=== PATIENT | male | born 1945 | race African-American/Black ===

== ENCOUNTER 2018-11-08 14:56 | Inpatient (IN) | payer MEDICARE, OTHER | END 2018-11-09 14:00 | disposition left against medical advice (07) | LOC: OVERFLOW 14:57 → ER 14:56 → WEST WING 11-09 02:40 | DX: C15.9 Malignant neoplasm of esophagus, unspecified (principal); K22.2 Esophageal obstruction; E86.0 Dehydration ==

== ENCOUNTER 2019-02-14 09:54 | Inpatient (IN) | payer MEDICARE, OTHER ==
[~2019-02-14] VITALS: Ht 185.4 cm; Wt 60.6 kg
[~2019-02-14 09:54] MED LIST: ACET-1603 PO; LATA0.0015 EACHEYE; LIDO1SOL MT
[2019-02-14 11:16] LABS: Hematocrit 48.7 % (41.0-53.0); Hemoglobin 15.4 g/dL (13.5-17.5); Mean Corpuscular Hemoglobin 31.6 pg (28.0-32.0); Mean Corpuscular Hgb Conc. 31.6 g/dL (32.0-36.0); Platelet Count (auto) 196 10^3/uL (140-450); Red Blood Cells 4.87 10^6/uL (4.5-5.90); Red Cell Distribution Width 18.3 % (11.8-14.3); White Blood Cell 3.4 10^3/uL (4.4-10.8)
[2019-02-14 11:21] LABS: Basophils % (manual) 0 (0.0-2.0); Blast Cells 0; Eosinophils % (manual) 0 (0-7); Metamyelocytes % 0; Myelocytes % 0; Promyelocytes % 0; Reactive Lymphocytes 0
[2019-02-14] MEDS ORDERED: SODIUM CHLORIDE 0.9% 1,000 ML IV ONE ×2 (11:29)
[2019-02-14 11:34] LABS: Albumin 3.7 g/dL (3.4-5.0); Anion Gap 5 (5-15); Blood Urea Nitrogen 62 mg/dL (7-18); Calcium 9.7 mg/dL (8.5-10.1); Carbon Dioxide 29 mmol/L (21-32); Chloride 129 mmol/L (98-107); Glucose 108 mg/dL (74-106); Potassium 4.7 mmol/L (3.5-5.1)
[2019-02-14 11:40] LABS: Alanine Aminotransferase 111 U/L (16-61); Alkaline Phosphatase 152 U/L (45-117); Aspartate Aminotransferase 40 U/L (15-37); BUN/Creatinine Ratio 38.3; Bilirubin, Total 0.4 mg/dL (0.2-1.0); GFR African American 54 mL/min; GFR Non-African American 45 mL/min; Total Protein 8.6 g/dL (6.4-8.2)
[2019-02-14 11:49] LABS: Sodium 163 mmol/L (136-145)
[2019-02-14 12:05] LABS: Band Neutrophils % (manual) 2; Lymphocytes % (manual) 8 (10.0-50.0); Monocytes % (manual) 14 (0-12)
[2019-02-14 13:22] LABS: Lactic Acid w/Reflex 2.1 mmol/L (0.4-2.0)
[2019-02-14] MEDS ORDERED: DEXTROSE (50%) 50ML SYRG IV PRN (13:45)
[2019-02-14] MEDS ORDERED: D5W/SOD CHL 0.2% 1,000 ML IV SCH (13:45)
[2019-02-14] MEDS ORDERED: MORPHINE SULF INJ 2 MG/ML SYRINGE 1ML IV PRN ×3 (13:45)
[2019-02-14] MEDS ORDERED: NITROGLYCERIN 0.4 MG SL TAB SL PRN (13:45)
[2019-02-14] MEDS ORDERED: FREE WATER GT SCH (14:00)
[2019-02-14 14:07] LABS: CRP High Sensitivity 0.46 mg/dL (< 0.3)
[2019-02-14] MEDS: FREE WATER GT SCH ×3 (16:17→22:07)
[2019-02-14] MEDS: D5W 5% 1,000 ML IV SCH (16:18)
[2019-02-14] MEDS: ACCU-CHEK COMFORT CURVE STRIP VI SCH ×2 (17:33→21:52)
[2019-02-14] MEDS: InsuLIN REG 1unit/0.01ml Soln (100units/ml) SC SCH ×2 (17:33→21:52)
[2019-02-14 17:57] VITALS: BP 108/69
[2019-02-14 18:00] VITALS: BP 108/68
--- NOTE | 2019-02-14 18:05 | NUR ---
Telemetry admit from ER TARA BLANCO admitted to Telemetry unit after SBAR received. Patient oriented to JUAREZ ANAND RN primary RN, tele unit,219 room,B bed, and unit policies regarding patient care and visiting hours. Patient now on continuous telemetry monitoring, tele box # 26 and telemetry reading on arrival to unit is sinus tach 111. patient weighed by bedscale and encouraged to call if they need something. Bed in lowest position, breaks locked, side rails up x2, call light with in reach. All questions and concerns addressed, patient verbalized understanding.
--- NOTE | 2019-02-14 18:58 | NUR ---
Per patient "my doctor told me to stop taking my home medication except my nausea medication"
--- NOTE | 2019-02-14 19:23 | NUR ---
Opening Shift Note Assumed care of patient, awake and alert x4. No S/S of distress/SOB or pain. Call light is within reach, side rails up x2, bed is in lowest position. Instructed on POC and to call for assist PRN. All questions and concerns answered, will continue to monitor for changes Q1hr and PRN.
[2019-02-14 22:00] VITALS: BP 94/64
[2019-02-15] MEDS: D5W 5% 1,000 ML IV SCH ×2 (00:30→09:00)
[2019-02-15] MEDS: FREE WATER GT SCH ×6 (02:11→22:08)
[2019-02-15 04:58] LABS: Hematocrit 42.5 % (41.0-53.0); Hemoglobin 13.6 g/dL (13.5-17.5); Mean Corpuscular Hemoglobin 31.6 pg (28.0-32.0); Mean Corpuscular Volume 98.6 fL (80.0-100.0); Platelet Count (auto) 171 10^3/uL (140-450); Red Blood Cells 4.32 10^6/uL (4.5-5.90); Red Cell Distribution Width 17.8 % (11.8-14.3); White Blood Cell 3.2 10^3/uL (4.4-10.8)
[2019-02-15 05:00] VITALS: BP 99/57
[2019-02-15 05:04] LABS: Band Neutrophils % (manual) 0; Basophils % (manual) 0 (0.0-2.0); Blast Cells 0; Myelocytes % 0; Promyelocytes % 0; Reactive Lymphocytes 0
[2019-02-15 05:18] LABS: Albumin 3.2 g/dL (3.4-5.0); BUN/Creatinine Ratio 41.3; Calcium 8.3 mg/dL (8.5-10.1); Potassium 3.9 mmol/L (3.5-5.1)
[2019-02-15 05:21] LABS: Bilirubin, Total 0.6 mg/dL (0.2-1.0)
[2019-02-15] MEDS: InsuLIN REG 1unit/0.01ml Soln (100units/ml) SC SCH (06:24)
[2019-02-15] MEDS: ACCU-CHEK COMFORT CURVE STRIP VI SCH (06:25)
[2019-02-15 06:47] LABS: Eosinophils % (manual) 2 (0-7); Lymphocytes % (manual) 12 (10.0-50.0); Metamyelocytes % 1; Monocytes % (manual) 20 (0-12)
--- NOTE | 2019-02-15 07:55 | NUR ---
Morning Note Assumed care of patient, awake and alert. Respiration are even and unlabored. No S/S of distress/SOB. Bed in lowest position, breaks locked, side rails up x2, call light with in reach. Instructed on POC and to call for assist PRN, will continue to monitor for changes Q1hr and PRN.
[2019-02-15 08:42] VITALS: BP 101/63
[2019-02-15] MEDS: FAMOTIDINE (10MG/ML) 2ML VL IV SCH (09:00)
[2019-02-15] MEDS: D5W/SOD CHL 0.45% 1,000 ML IV SCH ×2 (11:00→18:31)
[2019-02-15 11:02] LABS: Urine Bacteria NONE SEEN /hpf (None Seen); Urine Blood Negative /uL (Negative); Urine Hyaline Cast FEW /lpf (0 - 2); Urine Mucus FEW (None Seen); Urine WBC 1 /hpf (0 - 3)
--- NOTE | 2019-02-15 11:18 | NUR ---
G-tube feeding/Dietitian The Dietitian spoke with patient. Per dietitian "Ronan" patient takes pivot 1.5 at home 360ml bolus 5x a day in G-tube. Dietitian recommends Pivot bolus 360ml 5x a day. Will inform doctor Faith of recommendation.
--- NOTE | 2019-02-15 11:20 | NUR ---
Dietary recommendation given to Doctor Faith. Per Faith coello to give patient g-tube feeding of Dietary recommendation.
--- NOTE | 2019-02-15 12:30 | NUR ---
PT REPORTS THAT HE IS DOING FINE AND DOES NOT NEED P.T.
[2019-02-15 13:02] VITALS: BP 103/63
[2019-02-15] MEDS ORDERED: Ensure HIGH Protein Chocolate 8oz Bottle GT SCH (14:00)
--- NOTE | 2019-02-15 14:41 | NUR ---
Nutrition consult/assessment Notes please see attached link for complete assessment Est. Needs IBW 83 [id number] kcal (25-30 kcal/kgBW), 83-91 gms pro (1.0-1.1 gms/kgBW). Will continue to monitor pertinent labs and reassess nutrient need prn Rec: Pivot 1.5 360 ml 5 times per day per MD approval Addendum: 02/15/19 at [address] Amended: Links added.
[2019-02-15] MEDS: Pivot 1.5 Cal One Liter GT SCH (14:42)
[2019-02-15 16:40] VITALS: BP 105/52
--- NOTE | 2019-02-15 18:00 | NUR ---
360 ml bolus feeding given. See EMAR for dosage instructions.
--- NOTE | 2019-02-15 19:10 | NUR ---
Patient is awake, alert and resting in bed. Respiration are even and unlabored. No S/S of distress noted. Care endorsed to NOC TREVOR Queen
--- NOTE | 2019-02-15 19:13 | NUR ---
Opening Shift Note Assumed care of patient, awake and alert x4. No S/S of distress/SOB or pain. Call light is within reach, side rails up x2, bed is in lowest position. Instructed on POC and to call for assist PRN, will continue to monitor for changes Q1hr and PRN.
[2019-02-15 20:00] VITALS: BP 137/76
--- NOTE | 2019-02-15 21:00 | NUR ---
IV removal from RFA due to infiltration IV DC'd with clean sterile technique, catheter fully intact. Pressure dressing applied to site. Patient tolerated well.
--- NOTE | 2019-02-15 21:10 | NUR ---
IV insertion IV access obtained, via clean sterile technique by inserting 22 gauge catheter at the LFA after 3 attempt(s). IV secured properly. No trauma to site. Patient tolerated well.
[2019-02-15 21:36] VITALS: BP 94/56
[2019-02-16] MEDS: D5W/SOD CHL 0.45% 1,000 ML IV SCH ×3 (01:15→17:15)
[2019-02-16] MEDS: FREE WATER GT SCH ×6 (02:16→22:00)
--- NOTE | 2019-02-16 02:20 | NUR ---
Patient's quality assurance monitor chassis was discontinued per doctor's order.
[2019-02-16 04:42] VITALS: BP 102/61
[2019-02-16 05:34] LABS: Hematocrit 39.6 % (41.0-53.0); Hemoglobin 12.9 g/dL (13.5-17.5); Mean Corpuscular Hgb Conc. 32.5 g/dL (32.0-36.0); Mean Corpuscular Volume 98.2 fL (80.0-100.0); Platelet Count (auto) 151 10^3/uL (140-450); Red Blood Cells 4.04 10^6/uL (4.5-5.90); Red Cell Distribution Width 17.2 % (11.8-14.3)
[2019-02-16 05:40] LABS: Basophils % (manual) 0 (0.0-2.0); Blast Cells 0; Eosinophils % (manual) 0 (0-7); Metamyelocytes % 0; Myelocytes % 0; Promyelocytes % 0; Reactive Lymphocytes 0
[2019-02-16 06:10] LABS: Potassium 3.8 mmol/L (3.5-5.1)
[2019-02-16 06:16] LABS: Albumin 2.9 g/dL (3.4-5.0); BUN/Creatinine Ratio 38.5; Calcium 8.2 mg/dL (8.5-10.1)
[2019-02-16 06:19] LABS: Bilirubin, Total 0.4 mg/dL (0.2-1.0); Total Protein 6.9 g/dL (6.4-8.2)
[2019-02-16 06:20] LABS: Band Neutrophils % (manual) 1; Lymphocytes % (manual) 28 (10.0-50.0); Monocytes % (manual) 8 (0-12)
[2019-02-16 08:00] VITALS: BP 137/76
[2019-02-16 09:00] VITALS: BP 113/67
[2019-02-16] MEDS: FAMOTIDINE (10MG/ML) 2ML VL IV SCH (10:43)
[2019-02-16 13:00] VITALS: BP 109/62
[2019-02-16] MEDS: Pivot 1.5 Cal One Liter GT SCH (16:03)
[2019-02-16 17:00] VITALS: BP 105/68
--- NOTE | 2019-02-16 19:00 | NUR ---
Opening Shift Note Assumed care of patient, awake and alert. No S/S of distress/SOB or pain. Instructed on POC and to call for assist PRN, will continue to monitor for changes Q1hr and PRN.
[2019-02-16 21:25] VITALS: BP 116/56
[2019-02-17] MEDS: FREE WATER GT SCH ×3 (02:00→10:07)
[2019-02-17] MEDS: D5W/SOD CHL 0.45% 1,000 ML IV SCH ×2 (02:30→10:30)
[2019-02-17 04:52] VITALS: BP 98/61
[2019-02-17 06:08] LABS: BUN/Creatinine Ratio 32.7; Calcium 8.1 mg/dL (8.5-10.1)
[2019-02-17 07:55] VITALS: BP 137/76
[2019-02-17 09:00] VITALS: BP 93/64
[2019-02-17] MEDS ORDERED: NEOMYCIN-BACITRACIN-POLYM UNITDOSE PKG TOP OINT TOP SCH (10:00)
[2019-02-17] MEDS: FAMOTIDINE (10MG/ML) 2ML VL IV SCH (10:52)
--- NOTE | 2019-02-17 12:50 | NUR ---
Discharge instructions given as ordered. Encourage to follow up with PMD as instructed. All questions and concerns addressed. Patient verbalized understanding. Medication reconciliation form completed and copy given to patient. IV removed with catheter intact, pressure dressing applied . Patient taken to vehicle via wheelchair with all personal belongings, accompanied by staff and family member. No distress noted at time of departure.
== END 2019-02-17 12:50 | disposition home or self-care (01) | DRG 314 ==
LOC: ER 09:54 → EDBD 09:54 → TELE 09:55 → TELE-CENTR 17:51
PROVIDERS: ADMIT Internal Medicine; ATTEND Internal Medicine
DX: I95.9 Hypotension, unspecified (principal); N17.0 Acute kidney failure with tubular necrosis; E87.0 Hyperosmolality and hypernatremia; R62.7 Adult failure to thrive; E86.0 Dehydration; I73.9 Peripheral vascular disease, unspecified; K76.89 Other specified diseases of liver; Z93.1 Gastrostomy status; Z88.8 Allergy status to other drugs, medicaments and biological substances; J43.9 Emphysema, unspecified; K44.9 Diaphragmatic hernia without obstruction or gangrene; L60.0 Ingrowing nail; N40.0 Benign prostatic hyperplasia without lower urinary tract symptoms; Z80.3 Family history of malignant neoplasm of breast; Z80.8 Family history of malignant neoplasm of other organs or systems; Z82.3 Family history of stroke; Z85.819 Personal history of malignant neoplasm of unspecified site of lip, oral cavity, and pharynx; Z86.73 Personal history of transient ischemic attack (TIA), and cerebral infarction without residual deficits; Z92.21 Personal history of antineoplastic chemotherapy; Z92.3 Personal history of irradiation
CPT/HCPCS: 36415; 71045; 74176; 80048; 80053; 81001; 82150; 82550; 82962; 83605; 83690; 84484; 85007; 85027; 85652; 86141; 87040; 87086; 93005; 99291; G0378; J3490

== ENCOUNTER → 2019-06-02 | Emergency (ER) | payer MEDICARE, OTHER ==
[~2019-06-02] VITALS: Ht 185.4 cm; Wt 64.9 kg
[~2019-06-02] MED LIST changes: -ACET-1603 PO; -LATA0.0015 EACHEYE; +LATA0.0019 EACHEYE; +ONDANSETRON HCL 4 MG/2 ML VIAL IV ONE; +PANTOPRAZOLE 40 MG TAB PO ONE; +PANTOPRAZOLE 40 MG/10 ML VIAL INJ IV ONE; +PANTOPRAZOLE 40mg/50ML NS AE 50 ML IV ONE; +PROMETHAZINE HCL 25 MG/ML 1ML IV ONE; +SODIUM CHLORIDE 0.9% 1,000 ML IV ONE
[2019-06-02 08:34] LABS: Urine Bacteria NONE SEEN /hpf (None Seen); Urine Blood Negative /uL (Negative); Urine Hyaline Cast FEW /lpf (0 - 2); Urine Specific Gravity 1.024 (1.001-1.035); Urine WBC <1 /hpf (0 - 3)
[2019-06-02 11:14] LABS: Basophils # (auto) 0 uL; Basophils % (auto) 0.4 % (0.0-2.0); Eosinophils # (auto) 0 uL; Hematocrit 40.6 % (41.0-53.0); Hemoglobin 13.3 g/dL (13.5-17.5); Lymphocytes # (auto) 0.5 uL; Lymphocytes % (auto) 5.4 % (10.0-50.0); Mean Corpuscular Hgb Conc. 32.9 g/dL (32.0-36.0); Mean Corpuscular Volume 97.2 fL (80.0-100.0); Monocytes # (auto) 0.5 uL; Monocytes % (auto) 5.7 % (0.0-12.0); Neutrophils # (auto) 8.1 uL; Neutrophils % (auto) 88.5 % (37.0-80.0); Platelet Count (auto) 298 10^3/uL (140-450); Red Blood Cells 4.17 10^6/uL (4.5-5.90); Red Cell Distribution Width 13.4 % (11.8-14.3); White Blood Cell 9.2 10^3/uL (4.4-10.8)
[2019-06-02 12:59] LABS: Basophils # (auto) 0 uL; Basophils % (auto) 0.3 % (0.0-2.0); Eosinophils # (auto) 0 uL; Hematocrit 38.9 % (41.0-53.0); Hemoglobin 12.8 g/dL (13.5-17.5); Lymphocytes # (auto) 0.4 uL; Lymphocytes % (auto) 3.5 % (10.0-50.0); Mean Corpuscular Volume 96.7 fL (80.0-100.0); Monocytes # (auto) 0.5 uL; Monocytes % (auto) 4.1 % (0.0-12.0); Neutrophils # (auto) 11.5 uL; Neutrophils % (auto) 92.1 % (37.0-80.0); Platelet Count (auto) 285 10^3/uL (140-450); Red Blood Cells 4.02 10^6/uL (4.5-5.90); Red Cell Distribution Width 13.3 % (11.8-14.3); White Blood Cell 12.5 10^3/uL (4.4-10.8)
[2019-06-02 13:03] LABS: Albumin 4.4 g/dL (3.4-5.0); Calcium 10.5 mg/dL (8.5-10.1); Potassium 4.7 mmol/L (3.5-5.1)
[2019-06-02 13:07] LABS: Bilirubin, Total 0.3 mg/dL (0.2-1.0); Total Protein 9.1 g/dL (6.4-8.2)
[2019-06-02 19:10] LABS: INR 1.12 (0.9-1.15)
[2019-06-02 21:53] VITALS: BP 140/75
== END | disposition short-term general hospital (02) ==
LOC: ER 07:09
DX: C14.0 Malignant neoplasm of pharynx, unspecified (principal); K92.0 Hematemesis; Z93.1 Gastrostomy status
CPT/HCPCS: 36415; 70490; 71045; 80053; 81001; 85025; 85610; 85730; 96361; 96365; 96366; 96375; 96376; 99285; C9113; J2405; J2550; J7030

== ENCOUNTER 2019-07-15 01:05 | Inpatient (IN) | payer MEDICARE, OTHER ==
[~2019-07-15] VITALS: Ht 185.4 cm; Wt 99.3 kg
[~2019-07-15 01:05] MED LIST changes: -ONDANSETRON HCL 4 MG/2 ML VIAL IV ONE; -PANTOPRAZOLE 40 MG TAB PO ONE; -PANTOPRAZOLE 40 MG/10 ML VIAL INJ IV ONE; -PANTOPRAZOLE 40mg/50ML NS AE 50 ML IV ONE; -PROMETHAZINE HCL 25 MG/ML 1ML IV ONE; -SODIUM CHLORIDE 0.9% 1,000 ML IV ONE
[2019-07-15 01:48] LABS: Basophils # (auto) 0 10 ^3/uL (0-0.2); Basophils % (auto) 0.2 % (0.0-2.0); Eosinophils # (auto) 0 10 ^3/uL (0-0.8); Hematocrit 46.7 % (41.0-53.0); Hemoglobin 14.8 g/dL (13.5-17.5); Lymphocytes # (auto) 0.5 10 ^3/uL (0.4-5.4); Mean Corpuscular Hgb Conc. 31.8 g/dL (32.0-36.0); Mean Corpuscular Volume 97.5 fL (80.0-100.0); Monocytes # (auto) 1.2 10 ^3/uL (0-1.3); Monocytes % (auto) 10.2 % (0.0-12.0); Neutrophils # (auto) 10.2 10 ^3/uL (1.6-8.6); Neutrophils % (auto) 85.6 % (37.0-80.0); Nucleated Red Blood Cells % 0.1 %; Platelet Count (auto) 337 10^3/uL (140-450); Red Blood Cells 4.79 10^6/uL (4.5-5.90); Red Cell Distribution Width 14.1 % (11.8-14.3); White Blood Cell 11.9 10^3/uL (4.4-10.8)
[2019-07-15 02:06] LABS: Alanine Aminotransferase 369 U/L (16-61); Anion Gap 9 (5-15); Aspartate Aminotransferase 111 U/L (15-37); BUN/Creatinine Ratio 39.7; Calcium 9.8 mg/dL (8.5-10.1); Carbon Dioxide 28 mmol/L (21-32); Chloride 116 mmol/L (98-107); GFR African American 28 mL/min; GFR Non-African American 23 mL/min; Glucose 124 mg/dL (74-106); Potassium 4.5 mmol/L (3.5-5.1); Sodium 153 mmol/L (136-145)
[2019-07-15 02:08] LABS: Blood Urea Nitrogen 116 mg/dL (7-18)
[2019-07-15 02:13] LABS: Alkaline Phosphatase 153 U/L (45-117); Bilirubin, Total 0.2 mg/dL (0.2-1.0); Total Protein 8.7 g/dL (6.4-8.2)
[2019-07-15] MEDS ORDERED: SODIUM CHLORIDE 0.9% 1,000 ML IV ONE (02:15)
[2019-07-15 03:07] LABS: Lactic Acid w/Reflex 3.3 mmol/L (0.4-2.0)
[2019-07-15] MEDS ORDERED: SODIUM CHLORIDE 0.9% 1,000 ML IV SCH (05:45)
[2019-07-15] MEDS ORDERED: ALBUTEROL SULF 2.5 MG/0.5ML(0.5%) NEB SOLN NEB PRN (05:45)
[2019-07-15] MEDS ORDERED: ALUM & MAG HYDROX-SIMETH LIQ(MAALOX) 30 ML PO PRN (05:45)
[2019-07-15] MEDS ORDERED: DOCUSATE SOD 100 MG CAP PO PRN (05:45)
[2019-07-15] MEDS ORDERED: DEXTROSE (50%) 50ML SYRG IV PRN (05:45)
[2019-07-15] MEDS ORDERED: ACETAMINOPHEN 325 MG TAB PO PRN (05:45)
[2019-07-15] MEDS ORDERED: IPRATROPIUM BROM 0.5 MG/2.5ML INH SOL NEB PRN (05:45)
[2019-07-15 06:30] LABS: Basophils # (auto) 0 10 ^3/uL (0-0.2); Basophils % (auto) 0.1 % (0.0-2.0); Eosinophils # (auto) 0 10 ^3/uL (0-0.8); Hematocrit 41.8 % (41.0-53.0); Hemoglobin 13.5 g/dL (13.5-17.5); Lymphocytes # (auto) 0.4 10 ^3/uL (0.4-5.4); Lymphocytes % (auto) 3.3 % (10.0-50.0); Mean Corpuscular Hemoglobin 31.8 pg (28.0-32.0); Mean Corpuscular Hgb Conc. 32.4 g/dL (32.0-36.0); Monocytes # (auto) 1.3 10 ^3/uL (0-1.3); Monocytes % (auto) 10.9 % (0.0-12.0); Neutrophils # (auto) 10.6 10 ^3/uL (1.6-8.6); Neutrophils % (auto) 85.7 % (37.0-80.0); Nucleated Red Blood Cells % 0.1 %; Platelet Count (auto) 273 10^3/uL (140-450); Red Blood Cells 4.27 10^6/uL (4.5-5.90); Red Cell Distribution Width 13.8 % (11.8-14.3); White Blood Cell 12.4 10^3/uL (4.4-10.8)
[2019-07-15 06:52] LABS: Anion Gap 6 (5-15); BUN/Creatinine Ratio 45.3; Calcium 8.9 mg/dL (8.5-10.1); Carbon Dioxide 25 mmol/L (21-32); Chloride 122 mmol/L (98-107); GFR African American 36 mL/min; GFR Non-African American 29 mL/min; Glucose 114 mg/dL (74-106); Potassium 4.7 mmol/L (3.5-5.1); Sodium 153 mmol/L (136-145)
[2019-07-15 06:57] LABS: Blood Urea Nitrogen 106 mg/dL (7-18)
[2019-07-15] MEDS ORDERED: ACCU-CHEK COMFORT CURVE STRIP VI SCH (08:00)
[2019-07-15] MEDS ORDERED: InsuLIN REG 1unit/0.01ml Soln (100units/ml) SC SCH (08:00)
[2019-07-15 08:44] VITALS: BP 113/71
[2019-07-15 09:00] VITALS: BP 113/71
--- NOTE | 2019-07-15 09:22 | NUR ---
PT ADMITTED TO FLOOR FROM [facility] VIA STAFF. PT HAS PG TUBE HE REPORTS SINCE LAST YEAR AND IS UNABLE TO EAT BY MOUTH. PT REPORTS HE MIGHT FALL WALKING TO BATHROOM, BEDSIDE COMMODE BROUGHT. PT INSTRUCTED TO USE CALL LIGHT PRN. BED IN LOWEST LOCKED POSITION, SIDE RAILS UP X2. VITALS: 135/85, 02 98% ON RA, HR 105, RR 18, T 98.1. WILL CONTINUE TO MONITOR.
[2019-07-15] MEDS ORDERED: Jevity 1.2 Cal/Fiber 1 Liter GT SCH (11:15)
[2019-07-15] MEDS ORDERED: PANTOPRAZOLE 40 MG/10 ML VIAL INJ IV ONE (11:15)
--- NOTE | 2019-07-15 11:49 | NUR ---
NUTRITION CONSULT/ASSESSMENT NOTES When initiating EN support, consider Glucerna 1.2 Sathish @60ml/hr goal rate, as tolerated, to meet energy and protein needs. Please refer to link notes of nutrition screen form filed under the intervention section of the plan of care for further details. Est. Energy Needs: [id number] kcal (30-35 kcal/kg BW). Est. Protein Needs: 60-84 gms/day (1.0-1.5 gms/kg BW). Will continue to monitor pertinent labs and reassess nutrient need prn Addendum: 07/15/19 at [address] Amended: Links added.
--- NOTE | 2019-07-15 12:09 | NUR ---
Dr Bo saw patient and changed fluids to 0.45 ns. New orders for Cowart catheter. Cowart catheter inserted on two attempts. 18 Belarusian, inserted approx 50 mls urine return, clear yellow. 10 mls inserted into balloon. Addendum: 07/15/19 at 1217 by JAROCHO CARLOS RN Charge slime assisted. Pt tolerated procedure well.
--- NOTE | 2019-07-15 12:17 | NUR ---
SPOKE WITH DR GARCIA EARLIER, NOTIFIED PT HAS CRITICAL BUN OF 106, MD AWARE, NEW ORDERS PLACED.
--- NOTE | 2019-07-15 12:17 | NUR ---
MRSA AND URINE SENT TO LAB PER MD ORDER.
--- NOTE | 2019-07-15 12:20 | NUR ---
PEG TUBE FLUSHED WITH 30 MLS NS. CALLED WEIGHT CONTROL ENGINEER FOR JEVITY PUMP, JEVITY SENT UP BY DIETARY WILL INITIATE FEEDING WHEN PT RETURNS FROM CT.
[2019-07-15 12:43] LABS: Urine Bacteria NONE SEEN /hpf (None Seen); Urine Blood 2+ /uL (Negative); Urine Hyaline Cast FEW /lpf (0 - 2); Urine Specific Gravity 1.026 (1.001-1.035); Urine WBC 3 /hpf (0 - 3)
[2019-07-15 12:45] LABS: Protein, Urine 24.4 mg/dL (0.0-11.9)
[2019-07-15 13:00] VITALS: BP 136/85
--- NOTE | 2019-07-15 13:00 | NUR ---
DR CAMACHO SAW PATIENT AND DISCUSSED POC, NEW ORDERS FOR HEPATITIS PANEL AND LIVER ULTRASOUND. PEG FEEDING INITIATED WITH JEVITY RUNNING AT 30 ML/HR. PT SITTING UP, PEG TUBE UNCLAMPED, WILL ASPIRATE RESIDUAL IN 2 HRS TO ENSURE PT IS TOLERATING FEEDING.
[2019-07-15] MEDS: SOD CHL 0.45% 1,000 ML IV SCH ×2 (13:59→18:00)
--- NOTE | 2019-07-15 14:38 | NUR ---
ASPIRATED PT PEG TUBE FOR RESIDUAL FEEDING, UNABLE TO OBTAIN MORE THAN 2 MLS RESIDUAL, PT TOLERATING FEEDING. PT FEEDING PUT ON HOLD PER CT REQUEST. PEG TUBE FLUSHED WITH 30 MLS STERILE WATER. WILL CONTINUE TO MONITOR.
[2019-07-15 16:44] VITALS: BP 96/64
[2019-07-15 18:22] VITALS: BP 108/69
--- NOTE | 2019-07-15 19:30 | NUR ---
Opening Shift Note Assumed care of patient, awake and alert. No S/S of distress/SOB or pain. Safety measures in place bed in lowest position, side rails x2 up, and call light within reach. Instructed on POC and to call for assist PRN, will continue to monitor for changes Q1hr and PRN. Addendum: 07/16/19 at 0031 by OPAL ZHENG RN RN Peg placement verified. No residual. Feeding has been on hold for Ultrasound.
--- NOTE | 2019-07-15 21:57 | NUR ---
Patient's daughter called. Password verified. Daughter wanted on update on her father's status. Informed her that the physician's currently are rehydrating the patient, and waiting for pending results of the ultrasound. Family verbalized understanding. All questions answered. Will continue to monitor.
[2019-07-15 22:00] VITALS: BP 104/58
--- NOTE | 2019-07-15 22:00 | NUR ---
Patient's peg tube feeding resumed.
[2019-07-16] VITALS (7 sets, daily range): BP systolic 95–127; BP diastolic 53–80
--- NOTE | 2019-07-16 01:04 | NUR ---
Checked patient's peg tube for residual 5 mL noted. Patient tolerating feeding well. Will continue to monitor.
[2019-07-16] MEDS: SOD CHL 0.45% 1,000 ML IV SCH ×4 (04:29→22:05)
--- NOTE | 2019-07-16 04:30 | NUR ---
Checked patient's peg tube for residual 0 mL noted. Patient tolerating feeding well. Will continue to administer.
[2019-07-16 06:13] LABS: Basophils # (auto) 0 10 ^3/uL (0-0.2); Basophils % (auto) 0.4 % (0.0-2.0); Eosinophils # (auto) 0 10 ^3/uL (0-0.8); Eosinophils % (auto) 0.1 % (0.0-7.0); Hemoglobin 11.4 g/dL (13.5-17.5); Lymphocytes # (auto) 0.4 10 ^3/uL (0.4-5.4); Lymphocytes % (auto) 4.6 % (10.0-50.0); Mean Corpuscular Hemoglobin 31.7 pg (28.0-32.0); Mean Corpuscular Hgb Conc. 32.6 g/dL (32.0-36.0); Mean Corpuscular Volume 97.2 fL (80.0-100.0); Monocytes # (auto) 1.3 10 ^3/uL (0-1.3); Monocytes % (auto) 13.9 % (0.0-12.0); Neutrophils # (auto) 7.8 10 ^3/uL (1.6-8.6); Nucleated Red Blood Cells % 0.1 %; Platelet Count (auto) 252 10^3/uL (140-450); Red Cell Distribution Width 13.7 % (11.8-14.3); White Blood Cell 9.6 10^3/uL (4.4-10.8)
[2019-07-16 06:17] LABS: INR 1.15 (0.9-1.15)
[2019-07-16 06:27] LABS: Albumin 3.1 g/dL (3.4-5.0); Calcium 8.6 mg/dL (8.5-10.1); Magnesium 3.1 mg/dL (1.6-2.6); Potassium 4.4 mmol/L (3.5-5.1)
[2019-07-16 06:34] LABS: BUN/Creatinine Ratio 44.7; Bilirubin, Total 0.2 mg/dL (0.2-1.0); Phosphorus 2.7 mg/dL (2.5-4.90); Total Protein 6.9 g/dL (6.4-8.2)
--- NOTE | 2019-07-16 07:53 | NUR ---
PT RESTING IN BED NO DISTRESS NOTED. PT IS DROWSY AND REPORTS NAUSEA AND HEADACHE. CHECKED FOR RESIDUAL FEEDING FOR PEG TUBE. UNABLE TO DRAW MORE THAN A FEW MLS. PEG TUBE FLUSHED WITH 30 MLS STERILE WATER. FEEDING RESUMED. APPROX 150 MLS CLEAR YELLOW URINE NOTED IN [place], WILL GIVE PRN MEDS, AND CONTINUE TO MONITOR.
[2019-07-16] MEDS: PANTOPRAZOLE 40 MG/10 ML VIAL INJ IV SCH (08:34)
[2019-07-16] MEDS: ONDANSETRON HCL 4 MG/2 ML VIAL IV PRN (08:35)
--- NOTE | 2019-07-16 11:43 | NUR ---
SPOKE WITH DR AHUMADA AT NURSING STATION. REPORTS HE IS GOING TO INCREASE PT FEED TO 50 MLS AN HOUR, REPORTS HE IS GOING TO GIVE PT MORE FREE WATER, AND WANTS PHYSICAL THERAPY TO GET PATIENT UP TO CHAIR.
[2019-07-16] MEDS ORDERED: Jevity 1.2 Cal/Fiber 1 Liter GT SCH (11:45)
--- NOTE | 2019-07-16 11:50 | NUR ---
ASSESSED PT FOR PRN MED NEB TX, PT ON RA WITH SPO2 100%, HR 98, RR 15, CLEAR BS. NO DISTRESS NOTED NO SOB NOTED. NO INDICATION FOR PRN MED NEB AT THIS TIME. WILL CONTINUE TO MONITOR PT.
[2019-07-16] MEDS ORDERED: FREE WATER GT SCH (12:00)
--- NOTE | 2019-07-16 12:30 | NUR ---
200 MLS FREE WATER GIVEN PER MD ORDER, JEVITY INCREASED TO 50 MLS/HR, WILL CHECK FOR RESIDUAL IN 2 HRS.
--- NOTE | 2019-07-16 14:28 | NUR ---
ASSESSED RESIDUAL FROM G TUBE, PULLED 2 MLS JEVITY FROM GASTRIC TUBING. PT TOLERATING FEEDING WELL. FLUSHED TUBE WITH 20 MLS FREE WATER, FEEDING RESUMED, WILL CONTINUE TO MONITOR.
--- NOTE | 2019-07-16 15:54 | NUR ---
PHYSICAL THERAPY SAW PATIENT AND REPORTS PT BECAME VERY SHAKY AND WAS UNABLE TO WALK. PT PLACED BACK IN BED, WILL CONTINUE TO MONITOR.
--- NOTE | 2019-07-16 16:00 | NUR ---
PHYSICAL THERAPY WORKED WITH PATIENT, PHYSICAL THERAPY REPORTS PT WAS SHAKING WHEN TRYING TO STAND AND,"HIS LEGS GAVE OUT." PT WAS PLACED BACK IN BED, PHYSICAL THERAPY REPORTS HIS BLOOD PRESSURE WAS STABLE, PT STILL ORIENTED. PHYSICAL THERAPIST ASKED IF PT HAS HX OF SEIZURES, NO HX OF SEIZURES REPORTED. SPOKE WITH PATIENT DAUGHTER, SHE REPORTS SHE THINKS HER FATHER HAD 2 SEIZURES A FEW DAYS AGO, BUT REPORTS SHE ISN'T SURE BECAUSE HE HAS NEVER BEEN DIAGNOSED WITH THEM. SHE REPORTS HE HAD 2 EPISODES OF SHAKING THE LAST FEW DAYS. CALLED PBX AND PAGED DR MARCY MD CALLED BACK. NOTIFIED MD PATIENT HAS HAD EPISODES OF SHAKING AND HIS LEGS HAVE GIVEN OUT. NEW ORDERS FOR NEURO CONSULT. Addendum: 07/16/19 at 1825 by JAROCHO CARLOS RN ASSESSED PT, PT A AND 0 X 4 AND RESTING IN BED, NO DISTRESS NOTED, FLUIDS AND JEVITY RUNNING, WILL CONTINUE TO MONITOR.
--- NOTE | 2019-07-16 16:14 | NUR ---
DR GARCIA ORDERED FREE WATER 200 MLS Q 4 HRS, NOT SCHEDULED ON eMAR, CALLED PHARMACY, PHARMACY REPORTS THE ORDER WAS DC'D AND NEW ORDER NOT SHOWING. CALLED PBX AND PAGED DR GARCIA TO CLARIFY ORDER PER PHARMACY REQUEST, AWAITING CALL BACK.
--- NOTE | 2019-07-16 18:57 | NUR ---
TELE TECHS REPORT PT HAS ELEVATED T WAVES. TELE STRIP SHOWS ST, HR 125, WITH ELEVATED T WAVES. PT POT 4.4, WNL, CALLED PBX AND PAGED DR VIDAL. DR VIDAL CALLED BACK, HE REPORTS HE WILL LOOK INTO PT CHART.
--- NOTE | 2019-07-16 19:44 | NUR ---
Dr. Bo paged regarding clarification of order for 200 ml of free water every 4 hours via patient's PEG tube. Awaiting callback at this time. Message left via exchange with Gissell Snow
--- NOTE | 2019-07-16 19:52 | NUR ---
Received callback from Dr. Spring regarding clarification of Dr. Bo's order for 200 ml of free water every 4 hours via PEG tube. Per Dr. Spring order is okay.
--- NOTE | 2019-07-16 20:25 | NUR ---
Opening Shift Note Assumed care of patient, awake and alert. No S/S of distress/SOB or pain. Patient is on room air. Respirations even and unlabored. Instructed on POC and to call for assist PRN, will continue to monitor for changes Q1hr and PRN.
--- NOTE | 2019-07-16 21:15 | NUR ---
Patient reports SOB Patient reports SOB. Pulse oximeter reading on room air is 100%. RT paged for PRN breathing treatment.
--- NOTE | 2019-07-16 21:22 | NUR ---
Respiratory therapist at bedside with patient.
--- NOTE | 2019-07-16 21:35 | NUR ---
CONCERN: PER DR. TRUJILLO, PT HAS BEEN HAVING PROGRESSIVE COUGH FOR DAYS AND WITH A TEMP OF 99. ALSO, PER PT WAS IN ANOTHER HOSPITAL RECENTLY AND BEEN EXPOSED TO FAMILIES AND INQUIRING IF PT NEEDED TO BE TESTED FOR COVID. INFORMED MD WILL NOTIFY DENTAL NURSE HANG.
--- NOTE | 2019-07-16 21:55 | NUR ---
HANG BARRIGAPRESS OPERATOR AUTOMATIC CALLED BACK AND WAS NOTIFIED ABOUT DR. TRUJILLO'S CONCERN. PER HS, NEEDS TO CALL HOSPITALIST.
--- NOTE | 2019-07-16 22:00 | NUR ---
NOTIFIED DR. TRUJILLO ABOUT TERE MAURICIO INSTRUCTION. PAGED HOSPITALIST.
[2019-07-16] MEDS: FREE WATER GT SCH (22:05)
--- NOTE | 2019-07-16 22:05 | NUR ---
0 ml aspirated from PEG tube. 200 ml of free water given through PEG tube. PEG tube patent.
--- NOTE | 2019-07-16 22:15 | NUR ---
PER DR. TRUJILLO, DR. BLACKBURN, HOSPITALIST WAS NOTIFIED ABOUT HIS CONCERN. NO NEW ORDER AT THIS TIME
[2019-07-16] MEDS ORDERED: LORazepam 2MG/ML-1ML VIAL IV PRN (22:30)
--- NOTE | 2019-07-16 22:45 | NUR ---
Sputum culture order placed per Dr. Eli due to patient coughing up moderate amount of thick, clear phlegm.
--- NOTE | 2019-07-16 22:50 | NUR ---
Seizure precautions set up. Side rails padded and suction at bedside with Kenny.
--- NOTE | 2019-07-16 22:55 | NUR ---
Temperature reassessed and is 99.0 F. Patient asymptomatic.
[2019-07-16 23:32] LABS: Folate (Folic Acid) 13.26 ng/mL (5.38-24)
--- NOTE | 2019-07-17 00:17 | NUR ---
Sputum culture sent to lab.
[2019-07-17] MEDS: FREE WATER GT SCH ×6 (01:55→22:24)
--- NOTE | 2019-07-17 01:55 | NUR ---
0 ml aspirated from PEG tube. 200 ml of free water given through PEG tube. PEG tube patent.
[2019-07-17 05:00] VITALS: BP 122/65
[2019-07-17] MEDS: HYDROcodone-ACET 5/325MG TAB PO PRN (05:00)
--- NOTE | 2019-07-17 05:32 | NUR ---
0 ml aspirated from PEG tube. 200 ml of free water given through PEG tube. PEG tube patent.
--- NOTE | 2019-07-17 05:40 | NUR ---
Cowart care done using Cowart care wipes.
[2019-07-17 06:00] VITALS: BP 100/53
[2019-07-17 06:21] LABS: Albumin 2.7 g/dL (3.4-5.0); Bilirubin, Total 0.2 mg/dL (0.2-1.0); Calcium 7.9 mg/dL (8.5-10.1); Total Protein 6.2 g/dL (6.4-8.2)
--- NOTE | 2019-07-17 07:00 | NUR ---
CLOSING NOTE No S/S of distress/SOB or pain. Patient is on room air. Respirations even and unlabored.
[2019-07-17] MEDS: SOD CHL 0.45% 1,000 ML IV SCH ×2 (07:04→16:35)
--- NOTE | 2019-07-17 07:45 | NUR ---
Opening Shift Note Assumed care of patient, awake and alert, reports feeling anxious. No S/S of distress/SOB, reports headache is improved. Instructed on POC and to call for assist PRN, will continue to monitor for changes Q1hr and PRN.
[2019-07-17] MEDS: PANTOPRAZOLE 40 MG/10 ML VIAL INJ IV SCH (10:56)
--- NOTE | 2019-07-17 11:20 | NUR ---
Respiratory note: PT ASSESSED FOR PRN. PT AWAKE, ALERT AND RESPONSIVE. PT FOUND ON RA SP02 99%, RR 18, HR 98. PT IN NO DISTRESS AT THIS TIME. NO TX INDICATED.
[2019-07-17 13:00] VITALS: BP 141/70
--- NOTE | 2019-07-17 15:26 | NUR ---
EEG- ELECTROENCEPHALOGRAM COMPLETED ON 07/17/2019
[2019-07-17 16:49] VITALS: BP 124/57
--- NOTE | 2019-07-17 18:27 | NUR ---
PT ASSESSED FOR PRN MED NEB TX. SPO2 97% ON RA, HR 101. PT DENIES ANY RESPIRATORY DISTRESS. NO TX INDICATED. WILL CONTINUE TO MONITOR.
[2019-07-17 20:10] VITALS: BP 135/66
--- NOTE | 2019-07-17 20:10 | NUR ---
Opening Shift Note Assumed care of patient, awake and alert. No S/S of distress/SOB or pain. Patient is on room air. Respirations even and unlabored. Instructed on POC and to call for assist PRN, will continue to monitor for changes Q1hr and PRN. Addendum: 07/18/19 at 0804 by Fina Matos RN Seizure precautions present.
[2019-07-17 22:00] VITALS: BP 135/66
--- NOTE | 2019-07-17 22:24 | NUR ---
0 ml aspirated from PEG tube. 200 ml of free water given through PEG tube. PEG tube patent.
--- NOTE | 2019-07-17 22:45 | NUR ---
Temperature reassessed and is 100.0 F. Patient has on one blanket and one sheet. Patient refuses to remove blanket or sheet. Ice packs placed underneath patient's armpits and temperature in the room lowered. Patient has no S/S of distress/SOB. Will continue to monitor.
[2019-07-18] VITALS (7 sets, daily range): BP systolic 113–140; BP diastolic 64–81
--- NOTE | 2019-07-18 00:05 | NUR ---
Temperature reassessed and is 99.7 F. Patient has on one blanket and one sheet. Patient refuses to remove blanket or sheet. Ice packs placed underneath patient's armpits. Patient has no S/S of distress/SOB. Will continue to monitor.
[2019-07-18] MEDS: SOD CHL 0.45% 1,000 ML IV SCH (01:02)
--- NOTE | 2019-07-18 01:15 | NUR ---
Temperature reassessed and is 99.4 F. Ice packs remain placed underneath patient's armpits. Patient has no S/S of distress/SOB. Will continue to monitor.
[2019-07-18] MEDS: FREE WATER GT SCH ×4 (02:30→17:57)
--- NOTE | 2019-07-18 02:30 | NUR ---
0 ml aspirated from PEG tube. 200 ml of free water given through PEG tube. PEG tube patent.
--- NOTE | 2019-07-18 03:00 | NUR ---
IV removal due to leakage of IV IV DC'd with clean sterile technique, catheter fully intact. Pressure dressing applied to site. Patient tolerated well.
--- NOTE | 2019-07-18 03:35 | NUR ---
IV insertion IV access obtained, via clean sterile technique by inserting 20 gauge catheter at right forearm after 1 attempt by Olinda MURRAY. IV secured properly. No trauma to site. Patient tolerated well. Addendum: 07/18/19 at 0439 by Fina Matos RN correction: right arm
[2019-07-18] MEDS: HYDROcodone-ACET 5/325MG TAB PO PRN ×2 (03:43→22:18)
--- NOTE | 2019-07-18 03:43 | NUR ---
Patient medicated with Birdseye 5/325 mg via PEG tube for 10/10 headache due to patient not having PRN pain medication available for severe pain level. Will continue to monitor patient and contact MD if pain not adequately controlled with Birdseye.
--- NOTE | 2019-07-18 04:43 | NUR ---
Patient has no complaints of pain.
--- NOTE | 2019-07-18 04:50 | NUR ---
Assumed care of patient Patient is sleeping in bed with no S/S of distress. Will continue to monitor.
--- NOTE | 2019-07-18 04:50 | NUR ---
Report given to Delta RN, endorsed care. Patient currently has no S/S of distress/SOB. Patient is on room air. Respirations even and unlabored.
--- NOTE | 2019-07-18 07:35 | NUR ---
Opening Shift Note Assumed care of patient, awake and alert x2, does not remember where or why he came in. No S/S of distress/SOB or pain. Instructed on POC and to call for assist PRN,bed alarm on, will continue to monitor for changes Q1hr and PRN.
[2019-07-18 07:56] LABS: Albumin 2.9 g/dL (3.4-5.0); Calcium 8.1 mg/dL (8.5-10.1); Potassium 3.7 mmol/L (3.5-5.1)
[2019-07-18 07:59] LABS: BUN/Creatinine Ratio 22.3
[2019-07-18 08:02] LABS: Bilirubin, Total 0.3 mg/dL (0.2-1.0); Phosphorus 2.3 mg/dL (2.5-4.90); Total Protein 6.4 g/dL (6.4-8.2)
--- NOTE | 2019-07-18 08:40 | NUR ---
Respiratory note: PT IS RESTING COMFORTABLY. SPO2 99% ON RA, HR 112, RR 18, BS CLEAR BILATERALLY. PRN MEDNEB TX NOT INDICATED AT THIS TIME. PT AWOKE WHILE LISTENING TO BS, AND STATED THAT HE HAS BEEN COUGHING UP A LOT OF SECRETIONS. PT INFORMED TO PUSH CALL BUTTON IF INCREASED WOB, SOB, OR WHEEZING OCCURS.
[2019-07-18 10:01] LABS: Hepatitis A Ab IgM Negative; Hepatitis B Core IgM Negative; Hepatitis B Surface Antigen Negative (Negative); Hepatitis C Antibody Negative (Negative)
[2019-07-18] MEDS ORDERED: levoFLOXacin 500 MG TAB PO ONE (10:15)
--- NOTE | 2019-07-18 11:32 | NUR ---
Received Basket Assembler consult regarding Home Health. Pt insurance sales representative provided list of agencies and choice letter. Per request contacted [facility] and clinical information faxed to Yvonne. Information received and services to start upon discharge. Will notify covering nurse and MIKE II of the above. Called [facility] and they agreed to accept pt.
--- NOTE | 2019-07-18 13:54 | NUR ---
assessment re: ss consult dc planning and weak Patient is a 73 year old male who is alert and oriented. Patients cognitive abilities are intact. Prior to admission patient lived home with family and functioned independently. Patient informed me he is able to care for his own ADLs. Per patient he will return home to his prior living arrangements post discharge and family will transport him home. I informed patient of his ss consults. Per patient he refuses SNF. Patient wants to return home with home health PT and safety. Patients PCP is Dr Ovalles. Andreina 1 will susan bass order. I informed patient he has a right to speak to a social work nurse regarding all care. I informed patient he has a right to participate in any and all discharge planning. Patient has a POA and advanced directive. Patient verbalized understanding and agreed to discharge plan. Addendum: 07/18/19 at 1402 by Soila LUO Amended: Links added.
[2019-07-18] MEDS: ONDANSETRON HCL 4 MG/2 ML VIAL IV PRN (14:45)
--- NOTE | 2019-07-18 19:15 | NUR ---
Respiratory note: ASSESSMENT FOR PRN MED NEB TX. HR 99, SPO2 99% ON ROOM AIR, RR 16, BS DIMINISHED. PT PRESENTING NO RESPIRATORY DISTRESS AT THIS TIME. PT AWARE OF PRN MED NEB TX AND TO HAVE RT PAGED IF NEEDED. WILL CONTINUE TO MONITOR.
--- NOTE | 2019-07-18 20:00 | NUR ---
tOpening Shift Note Assumed care of patient, awake and alert. No S/S of distress/SOB or pain. Insructed on POC and to call for assist PRN, will continue to monitor for changes Q1hr and PRN.
[2019-07-19] MEDS: FREE WATER GT SCH ×3 (00:56→12:00)
[2019-07-19 03:17] VITALS: BP 113/68
[2019-07-19] MEDS: HYDROcodone-ACET 5/325MG TAB PO PRN (04:21)
[2019-07-19 05:16] VITALS: BP 113/53
[2019-07-19 06:53] LABS: Hematocrit 31.7 % (41.0-53.0); Hemoglobin 10.6 g/dL (13.5-17.5); Mean Corpuscular Hemoglobin 31.9 pg (28.0-32.0); Mean Corpuscular Hgb Conc. 33.4 g/dL (32.0-36.0); Mean Corpuscular Volume 95.5 fL (80.0-100.0); Platelet Count (auto) 218 10^3/uL (140-450); Red Blood Cells 3.32 10^6/uL (4.5-5.90); Red Cell Distribution Width 13.6 % (11.8-14.3); White Blood Cell 6.9 10^3/uL (4.4-10.8)
[2019-07-19 07:03] LABS: Basophils % (manual) 0 (0.0-2.0); Blast Cells 0; Metamyelocytes % 0; Myelocytes % 0; Promyelocytes % 0; Reactive Lymphocytes 0
[2019-07-19 07:14] LABS: Albumin 2.7 g/dL (3.4-5.0); BUN/Creatinine Ratio 17.3; Calcium 8.5 mg/dL (8.5-10.1); Potassium 3.9 mmol/L (3.5-5.1)
--- NOTE | 2019-07-19 07:15 | NUR ---
opening shift note Assumed care patient currently sleeping, no s/s of distress or SOB noted at this time, patient on RA. Bed in low position, locked, call light within reach, side rails x2 up. Jevity infusing at 50ml/hr via PEG tube. Will continue care.
[2019-07-19 07:17] LABS: Bilirubin, Total 0.3 mg/dL (0.2-1.0); Total Protein 6.6 g/dL (6.4-8.2)
[2019-07-19 07:30] LABS: Band Neutrophils % (manual) 2; Eosinophils % (manual) 3 (0-7); Lymphocytes % (manual) 12 (10.0-50.0); Monocytes % (manual) 20 (0-12)
--- NOTE | 2019-07-19 08:00 | NUR ---
Respiratory note: PT IS AWAKE, AND ALERT. NO RESPIRATORY DISTRESS NOTED. SPO2 99% ON RA, HR 101, RR 18, BS CLEAR BILATERALLY. PRN MEDNEB TX NOT INDICATED. PT INFORMED TO PUSH CALL BUTTON IF INCREASED WOB, SOB, OR WHEEZING OCCURS.
[2019-07-19 09:00] VITALS: BP 117/63
[2019-07-19] MEDS ORDERED: levoFLOXacin 500 MG TAB PO SCH (10:00)
[2019-07-19 11:57] VITALS: BP 117/63
--- NOTE | 2019-07-19 13:23 | NUR ---
Discharge instructions given as ordered. Encourage to follow up with PMD as instructed. All questions and concerns addressed. Patient verbalized understanding. IV removed with catheter intact, pressure dressing applied. Telemetry unit returned to ICU. Patient taken to vehicle via wheelchair with all personal belongings, accompanied by staff. No distress noted at time of departure.
== END 2019-07-19 13:25 | disposition home or self-care (01) | DRG 682 ==
LOC: EDBD 01:05 → ER 01:09 → TELE 01:10 → TELE-CENTR 08:50
PROVIDERS: ADMIT Hospitalist; ATTEND Internal Medicine
DX: N17.0 Acute kidney failure with tubular necrosis (principal); G93.41 Metabolic encephalopathy; R64 Cachexia; E44.1 Mild protein-calorie malnutrition; B19.9 Unspecified viral hepatitis without hepatic coma; E44.0 Moderate protein-calorie malnutrition; S05.42XA Penetrating wound of orbit with or without foreign body, left eye, initial encounter; E87.0 Hyperosmolality and hypernatremia; E87.1 Hypo-osmolality and hyponatremia; E86.0 Dehydration; I95.9 Hypotension, unspecified; N18.9 Chronic kidney disease, unspecified; E11.22 Type 2 diabetes mellitus with diabetic chronic kidney disease; K44.9 Diaphragmatic hernia without obstruction or gangrene; J44.9 Chronic obstructive pulmonary disease, unspecified; E11.51 Type 2 diabetes mellitus with diabetic peripheral angiopathy without gangrene; I12.9 Hypertensive chronic kidney disease with stage 1 through stage 4 chronic kidney disease, or unspecified chronic kidney disease; X58.XXXA Exposure to other specified factors, initial encounter; Z82.3 Family history of stroke; Z80.0 Family history of malignant neoplasm of digestive organs; Z87.891 Personal history of nicotine dependence; Z85.810 Personal history of malignant neoplasm of tongue; Z88.8 Allergy status to other drugs, medicaments and biological substances; Z80.3 Family history of malignant neoplasm of breast; Y93.89 Activity, other specified; Y92.89 Other specified places as the place of occurrence of the external cause; Z68.28 Body mass index [BMI] 28.0-28.9, adult; G40.409 Other generalized epilepsy and epileptic syndromes, not intractable, without status epilepticus
CPT/HCPCS: 12011; 36415; 36600; 70450; 70486; 71045; 72125; 74176; 76700; 80048; 80053; 80074; 80320; 81001; 82570; 82607; 82746; 82805; 82962; 83036; 83605; 83735; 84100; 84156; 84300; 84443; 84484; 85007; 85025; 85027; 85610; 87070; 87077; 87081; 87186; 87205; 93005; 95819; 96360; 97163; C9113; G0378; J2405

== ENCOUNTER 2019-08-17 20:48 | Emergency (ER) | payer MEDICARE, OTHER ==
[~2019-08-17] VITALS: Ht 185.4 cm; Wt 50.8 kg
[2019-08-17] MEDS ORDERED: ONDANSETRON HCL 4 MG/2 ML VIAL IV ONE (21:45)
[2019-08-17] MEDS ORDERED: MORPHINE SULFATE 4 MG/ML SYR/VIAL IV ONE (21:45)
[2019-08-17] MEDS ORDERED: HYDROmorphone HCL 2 MG/ML VL IV ONE (23:15)
[2019-08-18] MEDS ORDERED: cefTRIAXone 1GM/50ML D5W 50 ML IV ONE (00:45)
[2019-08-18 01:36] VITALS: BP 133/74
== END 2019-08-18 01:38 | disposition home or self-care (01) ==
LOC: EDBD 20:48 → ER 20:58
DX: S16.1XXA Strain of muscle, fascia and tendon at neck level, initial encounter (principal); L02.11 Cutaneous abscess of neck; J44.9 Chronic obstructive pulmonary disease, unspecified; Z87.891 Personal history of nicotine dependence; Z85.9 Personal history of malignant neoplasm, unspecified; X58.XXXA Exposure to other specified factors, initial encounter; Y93.89 Activity, other specified; Y92.89 Other specified places as the place of occurrence of the external cause; Y99.8 Other external cause status
CPT/HCPCS: 70450; 70490; 71045; 96365; 96375; 99285; J0696; J1170; J2270; J2405

== ENCOUNTER 2019-09-07 13:08 | Inpatient (IN) | payer MEDICARE, OTHER ==
[~2019-09-07] VITALS: Ht 185.4 cm; Wt 51.3 kg
[2019-09-07] MEDS ORDERED: SODIUM CHLORIDE 0.9% 1,000 ML IVB ONE (13:40)
[2019-09-07 14:18] LABS: Basophils # (auto) 0 10 ^3/uL (0-0.2); Basophils % (auto) 0.4 % (0.0-2.0); Eosinophils # (auto) 0 10 ^3/uL (0-0.8); Eosinophils % (auto) 0.1 % (0.0-7.0); Monocytes # (auto) 0.7 10 ^3/uL (0-1.3); Monocytes % (auto) 13.9 % (0.0-12.0); Nucleated Red Blood Cells % 0.1 %
[2019-09-07 14:19] LABS: Hemoglobin 10.1 g/dL (13.5-17.5); Lymphocytes # (auto) 0.2 10 ^3/uL (0.4-5.4); Mean Corpuscular Hemoglobin 29.1 pg (28.0-32.0); Mean Corpuscular Hgb Conc. 31.5 g/dL (32.0-36.0); Mean Corpuscular Volume 92.3 fL (80.0-100.0); Neutrophils # (auto) 3.9 10 ^3/uL (1.6-8.6); Neutrophils % (auto) 80.6 % (37.0-80.0); Platelet Count (auto) 548 10^3/uL (140-450); Red Blood Cells 3.47 10^6/uL (4.5-5.90); Red Cell Distribution Width 15.2 % (11.8-14.3); White Blood Cell 4.8 10^3/uL (4.4-10.8)
[2019-09-07 14:32] LABS: INR 1.18 (0.9-1.15); Partial Thromboplastin Time 31.9 sec (23.64-32.05)
[2019-09-07 14:37] LABS: Albumin 2.8 g/dL (3.4-5.0); Anion Gap 4 (5-15); Blood Urea Nitrogen 12 mg/dL (7-18); Calcium 8.7 mg/dL (8.5-10.1); Carbon Dioxide 30 mmol/L (21-32); Chloride 102 mmol/L (98-107); Glucose 141 mg/dL (74-106); Potassium 4.3 mmol/L (3.5-5.1); Sodium 136 mmol/L (136-145)
[2019-09-07 14:42] LABS: Alanine Aminotransferase 34 U/L (16-61); Alkaline Phosphatase 101 U/L (45-117); Aspartate Aminotransferase 14 U/L (15-37); Bilirubin, Total 0.2 mg/dL (0.2-1.0); GFR African American 113 mL/min; GFR Non-African American 93 mL/min; Total Protein 6.8 g/dL (6.4-8.2)
[2019-09-07 22:36] LABS: Urine Bacteria NONE SEEN /hpf (None Seen); Urine Blood Negative /uL (Negative); Urine Hyaline Cast FEW /lpf (0 - 2); Urine Mucus FEW (None Seen); Urine Specific Gravity 1.027 (1.001-1.035); Urine WBC 1 /hpf (0 - 3)
[2019-09-07] MEDS ORDERED: IPRATROPIUM BROM 0.5 MG/2.5ML INH SOL NEB PRN (23:00)
[2019-09-07] MEDS ORDERED: DOCUSATE SOD 100 MG CAP PO PRN (23:00)
[2019-09-07] MEDS ORDERED: ACETAMINOPHEN 325 MG TAB PO PRN (23:00)
[2019-09-07] MEDS ORDERED: ALBUTEROL SULF 2.5 MG/0.5ML(0.5%) NEB SOLN NEB PRN (23:00)
[2019-09-07] MEDS ORDERED: ONDANSETRON HCL 4 MG/2 ML VIAL IV PRN (23:00)
[2019-09-07] MEDS: SODIUM CHLORIDE 0.9% 1,000 ML IV SCH (23:35)
[2019-09-08] VITALS (7 sets, daily range): BP systolic 113–139; BP diastolic 66–98
--- NOTE | 2019-09-08 00:45 | NUR ---
Opening note Assumed care of patient. Patient alert and orientated x4. No SOB or distress noted. Bed locked and in lowest position. Call light within reach. Tele # 4. NSR at 80 Hr. Vital signs stable. Will continue to monitor.
[2019-09-08] MEDS: MORPHINE SULF INJ 2 MG/ML SYRINGE 1ML IV PRN (02:12)
--- NOTE | 2019-09-08 02:13 | NUR ---
Pain Patient states pain 9/10. Headache. Medicated with morphine per doctors orders. Will continue to monitor.
--- NOTE | 2019-09-08 02:15 | NUR ---
Respiratory note: PT SEEN AND ASSESSED FOR PRN MED NEB TX AT 0215. TX NOT INDICATED AT THIS TIME. PT IS NOT DISPLAYING ANY SIGNS OF RESPIRATORY DISTRESS. HR 93 RR 18 SP02 98% ON ROOM AIR.
[2019-09-08] MEDS: HYDROcodone-ACET 5/325MG TAB PO PRN (04:27)
[2019-09-08 05:47] LABS: Hemoglobin 9.5 g/dL (13.5-17.5); White Blood Cell 4.9 10^3/uL (4.4-10.8)
[2019-09-08 05:49] LABS: Hematocrit 29.8 % (41.0-53.0); Mean Corpuscular Hemoglobin 29.2 pg (28.0-32.0); Mean Corpuscular Hgb Conc. 31.9 g/dL (32.0-36.0); Mean Corpuscular Volume 91.8 fL (80.0-100.0); Platelet Count (auto) 568 10^3/uL (140-450); Red Blood Cells 3.25 10^6/uL (4.5-5.90); Red Cell Distribution Width 14.7 % (11.8-14.3)
[2019-09-08 06:08] LABS: Band Neutrophils % (manual) 0; Basophils % (manual) 0 (0.0-2.0); Blast Cells 0; Eosinophils % (manual) 0 (0-7); Metamyelocytes % 0; Myelocytes % 0; Promyelocytes % 0; Reactive Lymphocytes 0
[2019-09-08 06:45] LABS: BUN/Creatinine Ratio 16.9; Calcium 8.7 mg/dL (8.5-10.1)
[2019-09-08 06:54] LABS: Lymphocytes % (manual) 11 (10.0-50.0); Monocytes % (manual) 13 (0-12)
--- NOTE | 2019-09-08 07:13 | NUR ---
Closing note Endorsed care to day shift RN.
--- NOTE | 2019-09-08 07:30 | NUR ---
Opening Shift Note RECEIVED REPORT FROM NOC RN. Assumed care of patient, awake and alert. No S/S of distress/SOB or pain. BED IN LOWEST, LOCKED POSITION WITH SIDERAILS UP x2 AND CALL LIGHT WITHIN REACH. Instructed on POC and to call for assist PRN, will continue to monitor for changes Q1hr and PRN.
[2019-09-08 08:50] LABS: % Iron Saturation 6.2 % (20-55)
--- NOTE | 2019-09-08 09:10 | NUR ---
Opening note Assumed care of patient. Patient alert and orientated x4. No SOB or distress noted. Chest evenly rising. Bed locked in lowest position, side rails up x2. POC reviewed. Call light within reach. Will continue to monitor. Addendum: 09/09/19 at 0218 by ROSARIO DESIR RN RN disregard previous note. time is meant for 1909 on 09/08/19 not 0952
[2019-09-08] MEDS ORDERED: methylPREDNISolone SOD SUCC 125 MG/2 ML VL IV SCH (10:00)
--- NOTE | 2019-09-08 10:20 | NUR ---
DR. ORTIZ AT BEDSIDE.
--- NOTE | 2019-09-08 10:25 | NUR ---
WOUND CARE NOTE: Wound care in to see patient per wound care request regarding wounds that are noted present on admission. Bedside nurse took photograph of patient's wounds upon admission for reference. Patient is 73 y/o male with admitting diagnosis of Syncope with Dizziness and Weakness. Patient is resting in bed in Rm. 246A. Patient is awake, alert and oriented. He's able to assist in turning and repositioning and his Siddharth score is 15. Skin assessment done with the assistance of patient' s nurse, TREVOR Stinson. DR. Alvares arrived at bedside to see patient. Noted patient's Rt shoulder has 4x4cm wound with thin black eschar (Unstageable pressure injury). Sonia wound is dark red, no drainage/odor noted. His Rt hip also noted with 0.6x1cm open full thickness wound with no measurable depth. Wound is covered with yellow slough, sonia wound is pink scar tissue with dark hyperpigmented surrounding skin, minimal serous drainage noted, no odor noted. 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 Patient reported that he has had the wounds "for about a month, by laying in bed". Cleansed patient's wounds with wound cleanser, patted dry with gauze, applied Thera honey gel and covered wounds with Opti foam gentle dressing. Photograph of wounds are taken for reference. Patient is cachectic and has prominent bony prominences, he will benefit with air overlay mattress. Patient tolerated well, repositioned patient for comfort, redistributed pressure points with pillows. Bed in low position,call harrison within reach, all safety precautions in placed. RECOMMENDATION: Nursing to continue Daily/PRN dressing change to R shoulder and Rt hip wounds per MD order, Dietary consult, frequent turning and repositioning schedule as condition permits, redistribute pressure points with pillows;elevate heels on pillows; air mattress (ordered), continue monitoring by wound care while patient is hospitalized. Addendum: 09/08/19 at 1536 by Margie Abellar RN Amended: Links added.
--- NOTE | 2019-09-08 10:33 | NUR ---
Respiratory note: PT ASSESSED FOR PRN MED NEB TX, NO TX DESIRED NOR INDICATED. PT DENIES ANY SOB, NO DISTRESS NOTED. HR 91 RR 16 SPO2 96% ON RA BREATH SOUNDS ARE CLEAR/DIMINISHED T/O. PT AND RN AWARE TO HAVE RT PAGED IF NEEDED.
[2019-09-08] MEDS ORDERED: Nutren 1.0/Fiber 8 ounces GT SCH (11:15)
[2019-09-08] MEDS ORDERED: Vital High Protein 1liter Bottle GT SCH (13:00)
--- NOTE | 2019-09-08 13:06 | NUR ---
AIR MATTRESS: Air mattress ordered at [facility]. EDMAR 09/08/19 @ 1900. Reference #[id number]. Please call [facility] at if needed to follow up. Addendum: 09/08/19 at 1308 by Margie Pereria RN Amended: Links added.
[2019-09-08] MEDS ORDERED: Vital AF 1.2 Cal 1 liter bottle GT SCH (13:45)
--- NOTE | 2019-09-08 14:48 | NUR ---
Consult Consider Vital AF @ 60 ml/hr to provide 1728 kcal, 108g protein per MD approval Est energy needs 9858-0823 kcal (20-25 kcal/kg IBW 83.6kg) Est protein needs 84-92g (1-1.2g/kg IBW 83.6kg) Will reassess prn . Addendum: 09/08/19 at [address] Amended: Links added.
[2019-09-08] MEDS: SODIUM CHLORIDE 0.9% 1,000 ML IV SCH (18:41)
[2019-09-08] MEDS: CYANOCOBALAMIN (B-12) 1000 MCG/1 ML VIAL IM SCH (18:42)
[2019-09-08] MEDS: IRON SUCROSE COMPLEX 200 MG in SODIUM CHL 0.9% 100 ML IV SCH (18:50)
--- NOTE | 2019-09-08 19:07 | NUR ---
Respiratory note: PT SEEN AND ASSESSED FOR PRN MED NEB TX AT 1907. TX IS NOT INDICATED AT THIS TIME. PT DENIES HAVING ANY SHORTNESS OF BREATH. BREATH SOUNDS WERE CLEAR AND DIMINISHED BILATERALLY. HR 101 RR 18 SP02 99% ON ROOM AIR. PT AWARE TO CALL FOR RT IF ANY DISTRESS OCCURS.
--- NOTE | 2019-09-08 19:10 | NUR ---
Opening note Assumed care of patient. Patient alert and orientated x4. No SOB or distress noted. Chest evenly rising. Bed locked in lowest position, side rails up x2. POC reviewed. Call light within reach. Will continue to monitor.
[2019-09-09] VITALS (7 sets, daily range): BP systolic 97–148; BP diastolic 57–87
--- NOTE | 2019-09-09 07:28 | NUR ---
Respiratory note: Assessed pt for prn medneb tx. HR 101, RR 18, SPO2 97% on room air. Breath sounds clear/dim, pt denies SOB, no s/s of respiratory distress noted. Medneb tx not indicated at this time. Pt aware to call for RT if needed.
--- NOTE | 2019-09-09 07:51 | NUR ---
Closing note Endorsed care to day shift RN.
[2019-09-09] MEDS: CYANOCOBALAMIN (B-12) 1000 MCG/1 ML VIAL IM SCH (09:57)
[2019-09-09] MEDS: SODIUM CHLORIDE 0.9% 1,000 ML IV SCH (09:57)
[2019-09-09] MEDS: ENOXAPARIN SOD 40 MG/0.4 ML SYRINGE SC SCH (09:58)
[2019-09-09] MEDS ORDERED: ENOXAPARIN SOD 30 MG/0.3 ML SYRINGE SC SCH (10:00)
--- NOTE | 2019-09-09 10:08 | NUR ---
MORNING MEDICATIONS ADMINISTERED. PT TOLERATED WELL. DENIES ANY DISCOMFORT AT MOMENT. BED IN LOWEST POSITION, CALL LIGHT WITHIN REACH. WILL CONTINUE TO MONITOR.
[2019-09-09 10:24] LABS: Folate (Folic Acid) 9.82 ng/mL (5.38-24)
[2019-09-09] MEDS ORDERED: Vital AF 1.2 Cal 1 liter bottle GT SCH (12:30)
--- NOTE | 2019-09-09 12:30 | NUR ---
DR. AHUMADA IN TO SE PT. PT IN AGREEMENT WITH PLAN OF CARE.
--- NOTE | 2019-09-09 12:40 | NUR ---
TUBE FEEDING RATE ADJUSTED PER ORDER. 40ml/hr
[2019-09-09] MEDS: IRON SUCROSE COMPLEX 200 MG in SODIUM CHL 0.9% 100 ML IV SCH (12:46)
[2019-09-09] MEDS: HYDROcodone-ACET 5/325MG TAB PO PRN (18:16)
--- NOTE | 2019-09-09 18:45 | NUR ---
PT TOLERATES TUBE FEEDING WELL. 0ml RESIDUAL. CALL LIGHT WITHIN REACH.
--- NOTE | 2019-09-09 19:25 | NUR ---
Opening note Assumed care of patient. Patient alert and orientated x4. No sob or distress noted. Bed locked in lowest position. With bed alarm on. Side rails up x2. POC reviewed. Patient tolerating feeding well. No residual noted. call light within reach. will continue to monitor.
[2019-09-10] VITALS (7 sets, daily range): BP systolic 120–148; BP diastolic 71–87
[2019-09-10] MEDS: SODIUM CHLORIDE 0.9% 1,000 ML IV SCH ×2 (00:12→17:37)
[2019-09-10] MEDS: MORPHINE SULF INJ 2 MG/ML SYRINGE 1ML IV PRN (03:15)
[2019-09-10 06:07] LABS: Hemoglobin 9.8 g/dL (13.5-17.5); White Blood Cell 4.9 10^3/uL (4.4-10.8)
[2019-09-10 06:09] LABS: Mean Corpuscular Hgb Conc. 32.7 g/dL (32.0-36.0); Mean Corpuscular Volume 91.6 fL (80.0-100.0); Platelet Count (auto) 511 10^3/uL (140-450); Red Blood Cells 3.28 10^6/uL (4.5-5.90); Red Cell Distribution Width 15.1 % (11.8-14.3)
[2019-09-10 06:29] LABS: Potassium 3.6 mmol/L (3.5-5.1)
[2019-09-10 06:32] LABS: BUN/Creatinine Ratio 14.3; Calcium 8.6 mg/dL (8.5-10.1)
[2019-09-10 06:41] LABS: Band Neutrophils % (manual) 0; Basophils % (manual) 0 (0.0-2.0); Blast Cells 0; Eosinophils % (manual) 0 (0-7); Metamyelocytes % 0; Myelocytes % 0; Promyelocytes % 0; Reactive Lymphocytes 0
[2019-09-10 07:22] LABS: Lymphocytes % (manual) 10 (10.0-50.0); Monocytes % (manual) 19 (0-12)
--- NOTE | 2019-09-10 07:28 | NUR ---
Closing note Endorsed care to day shift RN Van. No distress or SOB noted at this time.
--- NOTE | 2019-09-10 10:25 | NUR ---
RT NOTE: NO TX INDICATED AT THIS TIME. NO SIGNS OF RESPIRATORY DISTRESS NOTED. ON RA SPO2 96 HR 68 RR 16. LUNG SOUNDS CLEAR DIMINISHED. PT AWARE TO PAGE FOR RESPIRATORY IF NEED FOR TX ARISES. WILL CONTINUE TO MONITOR.
[2019-09-10] MEDS: CYANOCOBALAMIN (B-12) 1000 MCG/1 ML VIAL IM SCH (10:40)
[2019-09-10] MEDS: ENOXAPARIN SOD 40 MG/0.4 ML SYRINGE SC SCH (10:41)
[2019-09-10] MEDS: IRON SUCROSE COMPLEX 200 MG in SODIUM CHL 0.9% 100 ML IV SCH (12:00)
--- NOTE | 2019-09-10 14:26 | NUR ---
Assessment Patient is a 73 year old male who is alert and oriented. Prior to admission patient lived home with family and functioned independently. Patient informed me he is able to care for his own ADLs. Per patient he will return home to his prior living arrangements post discharge and family will transport him home. Advised patient there is a social service consult to resume home health. Patient informed me he is on service with [facility] and would like to resume service with [facility]. Informed patient clinical information will be faxed to [facility]. Patients PCP is Dr Ovalles. Informed patient he has a right to participate in any and all discharge planning. Patient has a POA and advanced directive. Patient verbalized understanding and agreed to discharge plan. Per Rupali with [facility] they will resume service for patient within 24-48hrs upon d/c day. Informed TREVOR Smith. Addendum: 09/11/19 at 0925 by JESIKA LUO Amended: Links added.
--- NOTE | 2019-09-10 17:50 | NUR ---
DISCHARGE HOME WITH [facility], NEW PRESCRIPTION GIVEN TO PT. ENCOURAGE TO FOLLOW UP WITH PCP AND ONCOLOGIST. IV REMOVED WITH CATHETER INTACT, PRESSURE DRESSING APPLIED. FLUSHED G TUBE WITH 20ML OF WATER. TELE BOX REMOVED AND RETURNED TO ICU. PT LEFT UNIT VIA W/C ACCOMPANIED BY STAFF. NO ACUTE DISTRESS NOTED AT DEPARTURE.
== END 2019-09-10 17:18 | disposition home health service (06) | DRG 74 ==
LOC: EDBD 13:08 → ER 13:08 → TELE-EAST 13:09
PROVIDERS: ADMIT Hospitalist; ATTEND Internal Medicine
DX: G90.8 Other disorders of autonomic nervous system (principal); Z68.1 Body mass index [BMI] 19.9 or less, adult; E44.0 Moderate protein-calorie malnutrition; D50.8 Other iron deficiency anemias; C14.0 Malignant neoplasm of pharynx, unspecified; J44.9 Chronic obstructive pulmonary disease, unspecified; D47.3 Essential (hemorrhagic) thrombocythemia; E53.8 Deficiency of other specified B group vitamins; Z93.1 Gastrostomy status; Z79.899 Other long term (current) drug therapy; Z85.21 Personal history of malignant neoplasm of larynx
CPT/HCPCS: 36415; 70450; 71045; 80048; 80053; 80061; 81001; 82607; 82746; 83540; 83550; 83735; 84484; 85007; 85025; 85027; 85610; 85730; 87081; 93005; 96360; G0378; J1756

== ENCOUNTER 2019-10-19 12:38 | Emergency (ER) | payer MEDICARE, OTHER ==
[~2019-10-19] VITALS: Ht 185.4 cm; Wt 55.3 kg
[2019-10-19] MEDS ORDERED: SODIUM CHLORIDE 0.9% 1,000 ML IV ONE (13:05)
[2019-10-19 13:52] LABS: Basophils # (auto) 0 10 ^3/uL (0-0.2); Basophils % (auto) 0.5 % (0.0-2.0); Eosinophils # (auto) 0 10 ^3/uL (0-0.8); Eosinophils % (auto) 0.2 % (0.0-7.0); Hematocrit 33.8 % (41.0-53.0); Hemoglobin 10.7 g/dL (13.5-17.5); Lymphocytes # (auto) 0.4 10 ^3/uL (0.4-5.4); Mean Corpuscular Hemoglobin 29.5 pg (28.0-32.0); Mean Corpuscular Hgb Conc. 31.8 g/dL (32.0-36.0); Mean Corpuscular Volume 92.8 fL (80.0-100.0); Monocytes # (auto) 0.4 10 ^3/uL (0-1.3); Monocytes % (auto) 13.9 % (0.0-12.0); Neutrophils % (auto) 72.4 % (37.0-80.0); Nucleated Red Blood Cells % 0.2 %; Platelet Count (auto) 363 10^3/uL (140-450); Red Blood Cells 3.64 10^6/uL (4.5-5.90); Red Cell Distribution Width 18.3 % (11.8-14.3); White Blood Cell 2.8 10^3/uL (4.4-10.8)
[2019-10-19] MEDS ORDERED: SODIUM CHLORIDE 0.9% 500 ML IV ONE (14:00)
[2019-10-19 14:09] LABS: Albumin 3.6 g/dL (3.4-5.0); Anion Gap 10 (5-15); Calcium 9.9 mg/dL (8.5-10.1); Carbon Dioxide 25 mmol/L (21-32); Chloride 98 mmol/L (98-107); Glucose 103 mg/dL (74-106); Sodium 133 mmol/L (136-145)
[2019-10-19 14:10] LABS: INR 1.12 (0.9-1.15); Partial Thromboplastin Time 29.4 sec (23.64-32.05)
[2019-10-19 14:15] LABS: Alanine Aminotransferase 25 U/L (16-61); Alkaline Phosphatase 108 U/L (45-117); Aspartate Aminotransferase 11 U/L (15-37); Bilirubin, Total 0.4 mg/dL (0.2-1.0); GFR African American 99 mL/min; GFR Non-African American 82 mL/min; Total Protein 7.8 g/dL (6.4-8.2)
[2019-10-19 14:26] LABS: BUN/Creatinine Ratio 19.8; Blood Urea Nitrogen 19 mg/dL (7-18)
[2019-10-19 17:47] VITALS: BP 115/73
== END 2019-10-19 18:04 | disposition home or self-care (01) ==
LOC: ER 12:38
DX: S00.03XA Contusion of scalp, initial encounter (principal)
CPT/HCPCS: 36415; 70450; 71045; 80053; 83735; 83880; 84443; 84484; 85025; 85610; 85730; 93005; 96360; 96361; 99285; J7030